=== PATIENT | male | born 1960 | race Caucasian/White ===

== ENCOUNTER 2021-07-29 15:03 | Outpatient (CLI) | payer OTHER, SELFPAY ==
[2021-07-29 15:14] VITALS: BP 152/92; PULSE 98; RESP 16; TEMP 37.7; O2SAT 97; BMI 29.8
[2021-07-29 15:45] VITALS: BP 112/69; PULSE 72; RESP 16; TEMP 36.8; O2SAT 98
[2021-07-29 16:36] VITALS: BP 125/80; PULSE 82; RESP 16; TEMP 37.6; O2SAT 99
== END 2021-07-29 16:45 | disposition home or self-care (01) ==
LOC: MS3OUT 15:04 → MS3 15:05
PROVIDERS: PCP Family Medicine; Referring Provider Nurse Practitioner Acute Care; Visit Provider Nurse Practitioner Acute Care
DX: Z23 Encounter for immunization (principal); U07.1 COVID-19
CPT/HCPCS: J7050; M0245; Q0245